=== PATIENT | male | born 1970 ===

== ENCOUNTER 2016-05-27 13:19 | Emergency (ER) | payer OTHER ==
[2016-05-27 13:26] VITALS: PULSE 74; RESP 18; TEMP 98.2; O2SAT 98
--- NOTE | 2016-05-27 13:47 | C.PDOC ---
Time Seen by Provider: 05/27/16 13:37 Chief Complaint (Nursing): Weakness/Neurological Deficit Past Medical History Vital Signs: Last Vital Signs Temp 98.2 F 05/27/16 13:25 Pulse 74 05/27/16 13:25 Resp 18 05/27/16 13:25 BP 156/92 H 05/27/16 13:25 Pulse Ox 98 05/27/16 13:25 - Social History Hx Alcohol Use: Yes Hx Substance Use: No - Immunization History Hx Tetanus Toxoid Vaccination: No Hx Influenza Vaccination: No Hx Pneumococcal Vaccination: No ED Course And Treatment O2 Sat by Pulse Oximetry: 98
--- NOTE | 2016-05-27 13:49 | C.PDOC ---
History Of Present Illness 45 y/o male, presents to the ED for evaluation of left-sided facial numbness which began last night. Patient also reports tearing from his right eye and a decreased sensation of taste when he eats. Patient denies headache, vision change, chest pain, shortness of breath, upper/lower extremity numbness/ weakness. Time Seen by Provider: 05/27/16 13:37 Chief Complaint (Nursing): Weakness/Neurological Deficit History Per: Patient History/Exam Limitations: no limitations Onset/Duration Of Symptoms: Hrs Current Symptoms Are (Timing): Still Present Additional History Per: Patient Past Medical History Reviewed: Historical Data, Nursing Documentation, Vital Signs Vital Signs: Last Vital Signs Temp 98.2 F 05/27/16 13:25 Pulse 74 05/27/16 13:25 Resp 18 05/27/16 13:25 BP 123/83 05/27/16 14:07 Pulse Ox 98 05/27/16 17:52 - Medical History PMH: No Chronic Diseases Surgical History: No Surg Hx Family History: States: Unknown Family Hx - Social History Hx Alcohol Use: Yes Hx Substance Use: No - Immunization History Hx Tetanus Toxoid Vaccination: No Hx Influenza Vaccination: No Hx Pneumococcal Vaccination: No Review Of Systems Except As Marked, All Systems Reviewed And Found Negative. Constitutional: Negative for: Fever, Chills Eyes: Positive for: Other (+right eye tearing ). Negative for: Vision Change Cardiovascular: Negative for: Chest Pain, Palpitations Respiratory: Negative for: Cough, Shortness of Breath Gastrointestinal: Negative for: Vomiting, Abdominal Pain Neurological: Positive for: Numbness (left-sided, facial ), Other (+left-sided facial droop ). Negative for: Confusion, Altered Mental Status, Headache, Dizziness Psych: Negative for: Anxiety Physical Exam - Physical Exam Appears: Non-toxic, No Acute Distress Skin: Normal Color, Warm, Dry Head: Atraumatic, Normacephalic Eye(s): bilateral: Normal Inspection, PERRL, EOMI Oral Mucosa: Moist Tongue: Normal Appearing, No Swelling Neck: Normal ROM, Supple Chest: Symmetrical, No Deformity, No Tenderness Cardiovascular: Rhythm Regular, No Murmur Respiratory: Normal Breath Sounds, No Rales, No Rhonchi, No Wheezing Back: Normal Inspection Extremity: Normal ROM, No Tenderness, No Deformity, No Swelling Neurological/Psych: Oriented x3, Normal Speech, No Normal Cranial Nerves, Normal Motor (upper and lower extremities ), Normal Sensation Gait: Steady Other Neurological Findings: Facial Palsy (mild, left-sided), Other (decreased sensation to left side of face ) ED Course And Treatment O2 Sat by Pulse Oximetry: 98 (on RA) Pulse Ox Interpretation: Normal Medical Decision Making Medical Decision Making: Impression: 45 y/o male with left-sided facial numbness. 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 Explain to patient symptoms of [place] Palsy and will treat with Zovirax and Prednisone Disposition Counseled Patient/Family Regarding: Need For Followup, Rx Given - Disposition Referrals: [facility] [Outside] [facility] [Outside] Disposition: HOME/ ROUTINE Disposition Time: 13:47 Condition: STABLE Additional Instructions: Vaya a cuevas mdico o la clnica en 2-5 jones sin falta, para mas evaluacin. Rafael Pena los medicamentos josé miguel indicado. Volver a la janine de emergencia en cualquier momento si los sntomas persisten o empeoran. Prescriptions: Dextran 70/Hypromellose [Artificial Tears] 1 each AD Q4 #1 bottle Prednisone 50 mg PO DAILY #7 tablet Acyclovir [Zovirax] 400 mg PO 5XD #35 tab Instructions: Smiley Palsy (ED) Print Language: MOHAWK - POA Present On Arrival: None - Clinical Impression Clinical Impression: Smiley's palsy - PA / [employer]PECT[employer] / Resident Statement MD/DO has reviewed & agrees with the documentation as recorded. - Scribe Statement The provider has reviewed the documentation as recorded by the Scribe (Hilda Salinas) All medical record entries made by the Scribe were at my direction and personally dictated by me. I have reviewed the chart and agree that the record accurately reflects my personal performance of the history, physical exam, medical decision making, and the department course for this patient. I have also personally directed, reviewed, and agree with the discharge instructions and disposition.
[2016-05-27 14:22] VITALS: BP 123/83
== END 2016-05-27 14:30 | disposition home or self-care (01) ==
LOC: C.ER 13:19
DX: G51.0 Bell's palsy (principal)